=== PATIENT | male | born 1950 | race Caucasian/White ===

== ENCOUNTER → 2017-07-06 | Outpatient (CLI) | payer BC ==
[2017-07-06 08:54] LABS: Anion Gap 10 mmol/L; Calcium 9.1 mg/dL (8.4-10.2); Carbon Dioxide 26 mmol/L (22-30); Chloride 107 mmol/L (98-107); Cholesterol 114 mg/dL (<200); Glucose 98 mg/dL (74-99); HDL Cholesterol 26 mg/dL (40-60); Non-African American GFR(MDRD) >60 (>60 ml/min/1.73 sqM); Sodium 143 mmol/L (137-145); Total Bilirubin 0.7 mg/dL (0.2-1.3); Total Protein 7.2 g/dL (6.3-8.2)
[2017-07-06 09:41] LABS: Hepatitis C Virus IgG Ab Negative (Negative); Hepatitis C Virus IgG Index 0.02
[2017-07-06 09:45] LABS: AST 44 U/L (17-59); Blood Urea Nitrogen 13 mg/dL (9-20); Potassium 4.9 mmol/L (3.5-5.1)
[2017-07-06 09:46] LABS: ALT 69 U/L (21-72); Alkaline Phosphatase 86 U/L (38-126)
[2017-07-06 11:08] LABS: Prostate Specific Antigen 0.96 ng/mL (0.00-4.00)
[2017-07-06 12:34] LABS: Hemoglobin A1C 5.8 % (4.2-6.1)
== END | disposition home or self-care (01) ==
LOC: LABWHC1 07:46
PROVIDERS: ATTEND Family Medicine
DX: Z11.59 Encounter for screening for other viral diseases (principal); N40.0 Benign prostatic hyperplasia without lower urinary tract symptoms; R73.01 Impaired fasting glucose; E78.2 Mixed hyperlipidemia
CPT/HCPCS: 36415; 80053; 80061; 83036; 84153; 86803

== ENCOUNTER 2019-06-26 06:59 | Emergency (ER) | payer BC ==
[2019-06-26 07:05] VITALS: TEMP 97.8
[2019-06-26] MEDS ORDERED: SODIUM CHLORIDE 0.9% 1,000 ML IV STA ×2 (07:21)
[2019-06-26] MEDS ORDERED: ONDANSETRON 4 MG/2 ML VIAL IVP STA (07:21)
[2019-06-26] MEDS ORDERED: FAMOTIDINE 20 MG/2 ML VIAL IV STA (07:21)
[2019-06-26] MEDS ORDERED: DICYCLOMINE 10 MG/ML 2 ML AMP IM STA (07:21)
--- NOTE | 2019-06-26 07:25 | ED ---
General Adult HPI - General Chief complaint: Abdominal Pain Stated complaint: Food poisoning Time Seen by Provider: 06/26/19 07:08 Source: patient, family, RN notes reviewed Mode of arrival: ambulatory Limitations: no limitations - History of Present Illness Initial comments: Patient is a pleasant 69-year-old male present emergency department with family with complaints of diarrhea and abdominal cramping. Onset of symptoms was around midnight. Patient achieved to symptoms to eating fish at a restaurant last night. Patient has nausea without vomiting. This is not a chronic problem for him. Patient states abdominal discomfort is cramping and not painful. Patient does associate this with diarrhea. Patient states he has had multiple episodes of diarrhea since midnight. Patient also has some leg cramps. Patient is concerned he is dehydrated. - Related Data Home Medications Medication Instructions Recorded Confirmed Diclofenac Sodium Gel [Voltaren 2 gm TOPICAL QID PRN 06/26/19 06/26/19 Gel] Lisinopril-Hctz 10-12.5 mg 1 tab PO DAILY 06/26/19 06/26/19 [Zestoretic 10-12.5] Sildenafil Citrate [Sildenafil] 20 mg PO DAILY PRN 06/26/19 06/26/19 Simvastatin [Zocor] 20 mg PO HS 06/26/19 06/26/19 Triamcinolone 0.1% Lotion [Kenalog 1 applic TOPICAL BID PRN 06/26/19 06/26/19 0.1% Lotion] Allergies Allergy/AdvReac Type Severity Reaction Status Date / Time No Known Allergies Allergy Unverified 06/26/19 07:32 Review of Systems ROS Statement: Those systems with pertinent positive or pertinent negative responses have been documented in the HPI. ROS Other: All systems not noted in ROS Statement are negative. Constitutional: Denies: fever Eyes: Denies: eye pain ENT: Denies: ear pain Respiratory: Denies: cough Cardiovascular: Denies: chest pain Endocrine: Denies: fatigue Gastrointestinal: Reports: nausea, diarrhea Genitourinary: Denies: dysuria Musculoskeletal: Denies: back pain Skin: Denies: rash Neurological: Denies: weakness Past Medical History Past Medical History: Hyperlipidemia, Hypertension Additional Past Medical History / Comment(s): Abdominal aortic anerysm, kidney stone, Additional Past Surgical History / Comment(s): Lumbar surgery Smoking Status: Never smoker Past Alcohol Use History: None Reported Past Drug Use History: None Reported General Exam Limitations: no limitations General appearance: alert, in no apparent distress Head exam: Present: atraumatic Eye exam: Present: normal appearance, PERRL ENT exam: Present: normal oropharynx Neck exam: Present: normal inspection Respiratory exam: Present: normal lung sounds bilaterally Cardiovascular Exam: Present: regular rate, normal rhythm Expanded Peripheral pulses: 2+: Posterior Tibialis (R), Posterior Tibialis (L), Dorsalis Pedis (R), Dorsalis Pedis (L) GI/Abdominal exam: Present: soft. Absent: distended, tenderness, guarding, rebound, rigid, pulsatile mass Extremities exam: Present: normal inspection. Absent: pedal edema, calf tenderness Neurological exam: Present: alert Psychiatric exam: Present: normal affect, normal mood Skin exam: Present: normal color Course Vital Signs 06/26/19 07:02 Temperature 97.8 F Pulse Rate 88 Respiratory 16 Rate Blood Pressure 114/70 O2 Sat by Pulse 93 L Oximetry Medical Decision Making - Medical Decision Making Patient reevaluated and resting comfortably in bed. Patient feels much better. Abdomen soft and nontender. Patient and family updated on results and need for follow-up. - Lab Data Result diagrams: 06/26/19 07:51 06/26/19 08:37 Lab Results 06/26/19 06/26/19 06/26/19 Range/Units 07:51 07:51 07:51 WBC 13.1 H (3.8-10.6) k/uL RBC 4.97 (4.30-5.90) m/uL Hgb 16.8 (13.0-17.5) gm/dL Hct 50.8 (39.0-53.0) % MCV 102.3 H (80.0-100.0) fL MCH 33.7 (25.0-35.0) pg MCHC 33.0 (31.0-37.0) g/dL RDW 15.1 (11.5-15.5) % Plt Count 198 (150-450) k/uL Neutrophils % 92 % Lymphocytes % 2 % Monocytes % 3 % Eosinophils % 2 % Basophils % 0 % Neutrophils # 12.0 H (1.3-7.7) k/uL Lymphocytes # 0.3 L (1.0-4.8) k/uL Monocytes # 0.4 (0-1.0) k/uL Eosinophils # 0.3 (0-0.7) k/uL Basophils # 0.0 (0-0.2) k/uL Macrocytosis Slight Sodium 139 (137-145) mmol/L Potassium 6.2 H* (3.5-5.1) mmol/L Chloride 106 (98-107) mmol/L Carbon Dioxide 19 L (22-30) mmol/L Anion Gap 14 mmol/L BUN 25 H (9-20) mg/dL Creatinine 1.20 (0.66-1.25) mg/dL Est GFR (CKD-EPI)AfAm 71 (>60 ml/min/1.73 sqM) Est GFR (CKD-EPI)NonAf 62 (>60 ml/min/1.73 sqM) Glucose 168 H (74-99) mg/dL Calcium 9.3 (8.4-10.2) mg/dL Total Bilirubin 1.1 (0.2-1.3) mg/dL AST 49 (17-59) U/L ALT 50 (21-72) U/L Alkaline Phosphatase 84 (38-126) U/L Total Protein 8.0 (6.3-8.2) g/dL Albumin 4.6 (3.5-5.0) g/dL Amylase 58 (30-110) U/L Lipase 51 (23-300) U/L Urine Color Dark Brown Urine Appearance Cloudy (Clear) Urine pH 5.5 (5.0-8.0) Ur Specific [place] 1.024 (1.001-1.035) Urine Protein 1+ H (Negative) Urine Glucose (UA) Negative (Negative) Urine Ketones Trace H (Negative) Urine Blood Negative (Negative) Urine Nitrite Negative (Negative) Urine Bilirubin 1+ H (Negative) Urine Urobilinogen 3.0 (<2.0) mg/dL Ur Leukocyte Esterase Trace H (Negative) Urine WBC 5 (0-5) /hpf Ur Squamous Epith Cells 1 (0-4) /hpf Hyaline Casts 24 H (0-2) /lpf Urine Mucus Many H (None) /hpf 06/26/19 Range/Units 08:37 WBC (3.8-10.6) k/uL RBC (4.30-5.90) m/uL Hgb (13.0-17.5) gm/dL Hct (39.0-53.0) % MCV (80.0-100.0) fL MCH (25.0-35.0) pg MCHC (31.0-37.0) g/dL RDW (11.5-15.5) % Plt Count (150-450) k/uL Neutrophils % % Lymphocytes % % Monocytes % % Eosinophils % % Basophils % % Neutrophils # (1.3-7.7) k/uL Lymphocytes # (1.0-4.8) k/uL Monocytes # (0-1.0) k/uL Eosinophils # (0-0.7) k/uL Basophils # (0-0.2) k/uL Macrocytosis Sodium 139 (137-145) mmol/L Potassium 4.9 (3.5-5.1) mmol/L Chloride 107 (98-107) mmol/L Carbon Dioxide 20 L (22-30) mmol/L Anion Gap 12 mmol/L BUN 24 H (9-20) mg/dL Creatinine 1.13 (0.66-1.25) mg/dL Est GFR (CKD-EPI)AfAm 77 (>60 ml/min/1.73 sqM) Est GFR (CKD-EPI)NonAf 66 (>60 ml/min/1.73 sqM) Glucose 158 H (74-99) mg/dL Calcium 9.0 (8.4-10.2) mg/dL Total Bilirubin 0.7 (0.2-1.3) mg/dL AST 36 (17-59) U/L ALT 56 (21-72) U/L Alkaline Phosphatase 79 (38-126) U/L Total Protein 6.9 (6.3-8.2) g/dL Albumin 4.1 (3.5-5.0) g/dL Amylase (30-110) U/L Lipase (23-300) U/L Urine Color Urine Appearance (Clear) Urine pH (5.0-8.0) Ur Specific [place] (1.001-1.035) Urine Protein (Negative) Urine Glucose (UA) (Negative) Urine Ketones (Negative) Urine Blood (Negative) Urine Nitrite (Negative) Urine Bilirubin (Negative) Urine Urobilinogen (<2.0) mg/dL Ur Leukocyte Esterase (Negative) Urine WBC (0-5) /hpf Ur Squamous Epith Cells (0-4) /hpf Hyaline Casts (0-2) /lpf Urine Mucus (None) /hpf - Radiology Data Radiology results: image reviewed (Abdominal x-ray shows air-fluid levels. Could be related to ileus or enteritis, partial obstruction not excluded. Nonspecific abdomen.) Disposition Clinical Impression: Diarrhea Disposition: HOME SELF-CARE Condition: Stable Instructions (If sedation given, give patient instructions): Acute Diarrhea (ED) Additional Instructions: Please follow-up with primary care physician in the next couple days for recheck. Return for increased pain, not tolerating oral intake, fevers, worsening symptoms or any other concerns. [id number] Imodium as needed. Is patient prescribed a controlled substance at d/c from ED?: No Referrals: Taty Lindo MD [STAFF PHYSICIAN] - 1-2 days Time of Disposition: 09:13
[2019-06-26 08:06] LABS: Basophils % (A) 0 %; Eosinophils # (A) 0.3 k/uL (0-0.7); Eosinophils % (A) 2 %; HCT 50.8 % (39.0-53.0); HGB 16.8 gm/dL (13.0-17.5); Lymphocytes # (A) 0.3 k/uL (1.0-4.8); Lymphocytes % (A) 2 %; MCH 33.7 pg (25.0-35.0); MCV 102.3 fL (80.0-100.0); Macrocytosis Slight; Mean Platelet Volume 8.1; Monocytes # (A) 0.4 k/uL (0-1.0); Monocytes % (A) 3 %; Neutrophils % (A) 92 %; Platelet Count 198 k/uL (150-450); RBC 4.97 m/uL (4.30-5.90); RDW 15.1 % (11.5-15.5); WBC 13.1 k/uL (3.8-10.6)
[2019-06-26 08:14] LABS: Albumin 4.6 g/dL (3.5-5.0); Calcium 9.3 mg/dL (8.4-10.2)
[2019-06-26 08:15] LABS: Total Bilirubin 1.1 mg/dL (0.2-1.3)
--- NOTE | 2019-06-26 08:17 | XR ---
EXAMINATION TYPE: XR KUB DATE OF EXAM: 06/26/2019 COMPARISON: NONE HISTORY: Abdominal pain TECHNIQUE: One view abdominal series FINDINGS: The osseous structures are intact. The bowel gas pattern is nonspecific. There are dilated small bow el loops with air-fluid levels. Previous aortic stent grafts noted. Degenerative changes of the spine and arthropathy of the hips. IMPRESSION: 1. Nonspecific abdomen. Air-fluid levels with dilated small bowel loops in a pattern which could be related to an ileus or enteritis. Partial obstruction not excluded.
[2019-06-26 08:21] LABS: Appearance,Urine Cloudy (Clear); Bilirubin,Urine 1+ (Negative); Blood,Urine Negative (Negative); Color,Urine Dark Brown; Glucose,Urine (UA) Negative (Negative); Hyaline Casts,Urine 24 /lpf (0-2); Ketones,Urine Trace (Negative); Leukocyte Esterase,Urine Trace (Negative); Mucus,Urine Many /hpf; Nitrite,Urine Negative (Negative); PH, Urine 5.5 (5.0-8.0); Protein,Urine 1+ (Negative); Specific Gravity,Urine 1.024 (1.001-1.035); Squamous Epithelial Cell,Urine 1 /hpf (0-4); WBC,Urine 5 /hpf (0-5)
[2019-06-26 08:32] LABS: Potassium 6.2 mmol/L (3.5-5.1)
[2019-06-26 08:58] LABS: Albumin 4.1 g/dL (3.5-5.0); Potassium 4.9 mmol/L (3.5-5.1); Total Bilirubin 0.7 mg/dL (0.2-1.3); Total Protein 6.9 g/dL (6.3-8.2)
[2019-06-26 09:47] VITALS: BP 132/78; PULSE 67; RESP 18
== END 2019-06-26 09:47 | disposition home or self-care (01) ==
LOC: EC 06:59
DX: R19.7 Diarrhea, unspecified (principal); I10 Essential (primary) hypertension; E78.5 Hyperlipidemia, unspecified; Z79.899 Other long term (current) drug therapy
CPT/HCPCS: 36415; 80053; 82150; 83690; 85025; 81001; 74018; 99284; 96374; 96375; 96372; 96361 ×2; J0500; J2405

== ENCOUNTER → 2022-03-17 | Outpatient (CLI) | payer BC ==
--- NOTE | 2022-03-17 23:40 | MR ---
EXAMINATION TYPE: MR lumbar spine wo con DATE OF EXAM: 03/17/2022 COMPARISON: None HISTORY: Low back pain that radiates down right leg. History of surgery 2018. Multiplanar multi echo imaging of the lumbar spine performed without contrast. Lumbar vertebrae have normal alignment. There is extensive metal artifact anteriorly related apparent ly to the intervertebral iliacs stents. No significant compression fracture. There is mild narrowing of the lumbar disc spaces. There is hypertrophic facet arthropathy and posterior endplate spurring an d disc bulging with resultant mild narrowing of the spinal canal at the L3-4 level. No significant sp inal stenosis. There is no paraspinal mass. Facet joints are intact. No evidence of focal bone destru ction. There is developmentally adequate spinal canal. IMPRESSION: Multilevel spondylotic changes. Multilevel neural foraminal narrowing due to facet arthropathy and di sc space narrowing. There is mild relative narrowing of the spinal canal at L3-4. No significant over all spinal stenosis. No fracture. Small posterior disc herniations at L3-4 and L4-5.
== END | disposition home or self-care (01) ==
LOC: RADMRIMAIN 17:32
PROVIDERS: ATTEND Orthopaedic Surgery Orthopaedic Surgery of the Spine
DX: M47.26 Other spondylosis with radiculopathy, lumbar region (principal); M48.061 Spinal stenosis, lumbar region without neurogenic claudication; M51.16 Intervertebral disc disorders with radiculopathy, lumbar region; Z98.890 Other specified postprocedural states
CPT/HCPCS: 72148

== ENCOUNTER → 2022-09-08 | Outpatient (CLI) | payer BC ==
[2022-09-08 10:39] LABS: Basophils # (A) 0.02 X 10*3/uL (0.00-0.10); Basophils % (A) 0.2 %; Eosinophils # (A) 0.19 X 10*3/uL (0.04-0.35); Eosinophils % (A) 1.9 %; HGB 11.5 g/dL (13.0-17.0); Immature Grans, Automated 0.4 %; Lymphocytes # (A) 2.07 X 10*3/uL (0.90-5.00); Lymphocytes % (A) 20.5 %; MCH 32.2 pg (27.0-32.0); MCHC 33.8 g/dL (32.0-37.0); MCV 95.2 fL (80.0-97.0); Mean Platelet Volume 10.3 fL (9.5-12.2); Monocytes # (A) 0.88 X 10*3/uL (0.20-1.00); Monocytes % (A) 8.7 %; NRBC Per 100 WBC 0 /100 WBCS (0.0-0.0); Neutrophils # (A) 6.91 X 10*3/uL (1.80-7.70); Neutrophils % (A) 68.3 %; Platelet Count 298 X 10*3/uL (140-440); RBC 3.57 X 10*6/uL (4.40-5.60); RDW 14.7 % (11.5-14.5); WBC 10.11 X 10*3/uL (4.50-10.00)
[2022-09-08 11:06] LABS: % Iron Saturation 12.54 (15.00-50.00)
== END | disposition home or self-care (01) ==
LOC: LABWHC1 07:43
PROVIDERS: ATTEND Family Medicine
DX: D64.9 Anemia, unspecified (principal); R73.03 Prediabetes
CPT/HCPCS: 36415; 82728; 82947; 83036; 83540; 83550; 85025

== ENCOUNTER → 2024-05-06 | Outpatient (CLI) | payer BC ==
[2024-05-06 15:04] LABS: Blood Urea Nitrogen 16.9 mg/dL (9.0-27.0); Chloride 103 mmol/L (96-109); Chol/HDL Ratio 3.31 Ratio; Glucose 131 mg/dL (70-110); LDL Cholesterol,Calculated 41.5 mg/dL (0.0-131.0); Potassium 4.6 mmol/L (3.5-5.5); Sodium 139 mmol/L (135-145)
[2024-05-06 15:05] LABS: ALT 45 U/L (10-49); AST 28 U/L (14-35); Albumin 4.5 g/dL (3.8-4.9); Alkaline Phosphatase 116 U/L (41-126); Bilirubin, Conjugated <0.20 mg/dL (0.20-0.40); Bilirubin,Unconjugated >0.40 mg/dL (0.20-1.00); Calcium 9.3 mg/dL (8.7-10.3); Carbon Dioxide 24.2 mmol/L (21.6-31.8); Globulin 2.5 g/dL (1.6-3.3); Total Bilirubin 0.6 mg/dL (0.3-1.2)
== END | disposition home or self-care (01) ==
LOC: LABWHC1 09:11
PROVIDERS: ATTEND Family Medicine
DX: Z12.5 Encounter for screening for malignant neoplasm of prostate (principal); E78.2 Mixed hyperlipidemia; R73.03 Prediabetes; R74.01 Elevation of levels of liver transaminase levels
CPT/HCPCS: 80061; 80048; 80076; 83036; 36415; G0103